=== PATIENT | male | born 1950 | race Caucasian/White ===

== ENCOUNTER 2016-10-21 09:03 | Outpatient (CLI) | payer MEDICARE, BC ==
[~2016-10-21] VITALS: Ht 172.7 cm; Wt 81.8 kg
--- NOTE | ~2016-10-21 | OP ---
PATIENT NAME: BELINDA GERARD MEDICAL RECORD: [id number] :46 LOCATION:D.CAT ADMISSION DATE: SURGEON: MERLY HARRIS MD OPERATION DATE: 10/21/16 PROCEDURES: 1. Percutaneous transluminal coronary angioplasty stent left circumflex. 2. Left heart catheterization. 3. Selective coronary angiography. 4. Left ventriculogram. INDICATION: 1. Angina. 2. Coronary artery disease. PROCEDURE IN DETAIL: After informed consent was obtained and after detailed explanation of risks, benefits, as well as alternative therapies, the patient elected to proceed with angiogram and angioplasty. The right femoral area was prepped and draped in a normal sterile fashion. The right femoral artery was cannulated via modified Seldinger technique with placement of 6-Macedonian sheath. All catheters exchanged through this sheath. FINDINGS: The left ventriculogram was performed in standard 30 degree PURVIS view, reveals preserved cardiac wall motion and ejection fraction of 50%. SELECTIVE CORONARY ANGIOGRAPHY: 1. The left main is with no significant angiographic disease. 2. The left anterior descending has mild irregularities but no flow-limiting stenosis. 3. The left circumflex has 99% stenosis in the mid vessel. 4. The right coronary artery has a chronic 100% stenosis in the mid vessel, however, it fills via left to right collaterals. PTCA STENT OF THE LEFT CIRCUMFLEX: The stent used was a 3.0 X 18 millimeter BioFreedom stent to this 15 millimeter lesion in a 3.0 vessel, PARKER 3 flow before and after the intervention. The result was 0% residual stenosis. OVERALL IMPRESSION: Successful percutaneous transluminal coronary angioplasty stent of the left circumflex going from 99% initial stenosis to 0% residual stenosis. MERLY HARRIS MD CC: [id number] DICTATION DATE: 10/21/16 1500 ASSORTER: DM 10/22/16 0950 DEP CLI 10/21/[address] [facility] [address] [place] [address]
--- NOTE | ~2016-10-21 | HEMODYNAMI ---
PATIENT:BELINDA GERARD MEDICAL RECORD: [id number] : 46 LOCATION:D.CAT ADMISSION DATE: 10/21/16 Generatedon:10/21/201613:42 Patient name: BELINDA GERARD Patient #: [id number] SSN: DO B: 1950 Date of study: 10/21/2016 Page: Of Hemodynamic Procedure Report Patient Data Patient Demographics Procedure consent was obtained First Name: BELINDA Gender: Male Last Name: RAJANI : 1950 Middle Initial: O Age: 66 year(s) Patient #: [id number] Race: Additional ID: [id number] Contact details Address: [address] [place] [address] [address]IVE State: [place] City: [place] Zip code: [address] Past Medical History Allergies: No known allergies Admission Admission Data Admission Date: 10/21/2016 Admission Time: 9:03 Admit Source: Other Height (in.): 68 BSA: 1.96 (m2) Height (cm.): 172.72 BMI: 27.42 (kg/m2) Weight (lbs.): 180.36 Weight (kg.): 81.81 Lab Results Lab Result Date: 10/21/2016 Lab Result Time: 9:20 Biochemistry Name Units Result Min Max BUN mg/dl 17 --(---*)-- 7 18 Creatinine mg/dl 1.1 --(--*-)-- 0.6 1.3 CBC Name Units Result Min Max Hematocrit % 48.8 --(--*-)-- 42 54 Hemoglobin g/dl 16.1 --(--*-)-- 13.5 17.5 Procedure Procedure Types Cath Procedure Diagnostic Procedure C [facility] w/Coronaries Procedure Description Procedure Date Procedure Date: 10/21/2016 Procedure Start Time: 13:08 Procedure Staff Name Function Abdi Solis MD Performing Physician Yandy Denis RT Scrub Juno Valera RN Nurse Stephon Villar RT Monitor Procedure Data Cath Procedure Fluoroscopy Diagnostic fluoroscopy Total fluoroscopy Time: 8.7 time: 8.7 min min Diagnostic fluoroscopy Total fluoroscopy dose: dose: 1266 mGy 1266 mGy Contrast Material Contrast Material Type Amount (ml) Isovue 300 137 Entry Location Entry Primary Successful Side Size Upsize Upsize Entry Closure Parra ccessful Closure Location (Fr) 1 (Fr) 2 (Fr) Remarks Device Remarks Radial Right 6 Fr Mechanical artery Short Compression Femoral Right 6 Fr Exoseal artery Short Estimated blood loss: 10 ml Diagnostic catheters Device Type Used For End Catheter Placement Diagnostic Infinity 5Fr Procedure AR 2 MOD catheter Diagnostic Terumo 5Fr Procedure [place] 110cm catheter Procedure Complications No complications Procedure Medications Medication Administration Route Dosage Oxygen NC 2 l/min Heparin Flush Bag added to field 2 bags (1000units/500ml NS) 0.9% NaCl I.V. 100 ml/hr Radial Cocktail added to field 1 syringe (Verapomil 2mg/Nitro 400mcg/Heparin 1500units) Fentanyl I.V. 50 mcg Versed I.V. 1 mg Radial Cocktail I.A. 1 syringe (Verapomil 2mg/Nitro 400mcg/Heparin 1500units) Fentanyl I.V. 50 mcg Versed I.V. 1 mg Heparin Bolus I.V. 4000 units Integrilin (Bolus I.V. 7.3 ml 2mg/ml) Integrilin (Bolus wasted 2.7 ml 2mg/ml) Plavix P.O. 600 mg Aspirin P.O. 325 mg Hemodynamics Rest BSA: 1.96 (m2) HGB: 16.1 (g/dl) O2 Consumption: Estimated: 223.3 (ml/min) O2 Con sumption indexed: Estimated:113.93 (ml/min/m) Heart Rate: 64 (bpm) Snapshots Pre Cath Intra NCS Post Cath Vital Signs Time Heart Resp SPO2 NIBP (mmHg) Rhythm Pain Sedation Rate (ipm) (%) Status Level (bpm) 12:51:06 61 17 98 144/82(119) NSR 0 (11) 10(A) , No pain 12:55:18 58 19 100 143/80(122) NSR 0 (11) 10(A) , No pain 12:59:30 68 18 94 124/80(100) NSR 0 (11) 10(A) , No pain 13:03:38 67 17 94 120/69(94) NSR 0 (11) 10(A) , No pain 13:07:46 66 17 90 119/69(100) NSR 0 (11) 9(A) , No pain 13:11:54 74 19 91 87/60(73) NSR 0 (11) 9(A) , No pain 13:15:51 72 17 92 108/64(91) NSR 0 (11) 9(A) , No pain 13:19:53 71 17 92 115/70(98) NSR 0 (11) 9(A) , No pain 13:24:01 72 17 94 110/60(89) NSR 0 (11) 9(A) , No pain 13:28:04 78 18 92 116/66(80) NSR 0 (11) 9(A) , No pain 13:32:12 74 18 95 115/66(82) NSR 0 (11) 9(A) , No pain 13:36:18 75 11 93 116/70(86) NSR 0 (11) 9(A) , No pain 13:40:24 69 12 97 117/68(89) NSR 0 (11) 9(A) , No pain Medications Time Medication Route Dose Verified Delivered Reason Note s Effectiveness by by 12:53:09 Oxygen NC 2 l/min Juno Fraire Per physician Soto Valera RN RN 12:53:17 Heparin Flush added 2 bags Juno Fraire used for Bag to Soto Valera junior media buyer (1000units/500ml field RN NS) 12:53:30 0.9% NaCl I.V. 100 Juno Fraire Per physician ml/hr Soto Valera RN RN 12:53:39 Radial Cocktail added 1 Juno Fraire used for (Verapomil to syringe Soto Valera RN procedure 2mg/Nitro field RN 400mcg/Heparin 1500units) 13:06:02 Fentanyl I.V. 50 mcg Juno Fraire for sedation Soto Valera RN RN 13:06:10 Versed I.V. 1 mg Juno Fraire for sedation Soto Valera RN RN 13:08:18 Radial Cocktail I.A. 1 Juno Patton for (Verapomil syringe Soto Solis MD vasodilation 2mg/Nitro RN 400mcg/Heparin 1500units) 13:08:24 Fentanyl I.V. 50 mcg Juno Fraire for sedation Soto Valera RN RN 13:08:30 Versed I.V. 1 mg Juno Fraire for sedation Soto Valera RN RN 13:27:12 Heparin Bolus I.V. 4000 Juno Fraire for units Soto Valera RN anticoagulation RN 13:27:27 Integrilin I.V. 7.3 ml Juno Fraire for (Bolus 2mg/ml) Soto Valera RN antiplatelet RN therapy 13:27:35 Integrilin wasted 2.7 ml Juno Fraire for (Bolus 2mg/ml) Soto Valera RN antiplatelet RN therapy 13:32:32 Plavix P.O. 600 mg Juno Fraire for Soto Valera RN antiplatelet RN therapy 13:39:37 Aspirin P.O. 325 mg Juno Fraire Per physician Soto Valera RN creative writing teacher Log Time Note 12:30:27 Juno Valera RN sent for patient. Start room use. 12:38:28 Time tracking: Regular hours 12:38:32 Plan of Care:Hemodynamics will remain stable., Cardiac rhythm will remain stable., Comfort level will be maintained., Respiratory function will remain adequate., Patient/ family verbilizes understanding of procedure., Procedure tolerated without complication., Recovers from procedure without complications.. 12:42:57 Patient received from Pre/Post Procedure Room to [facility] 2 Alert and oriented. Tansferred to table in Supine position. 12:49:53 Warm blankets applied, and jacqueline hugger turned on for patient comfort. 12:49:54 Correct patient and procedure confirmed by team. 12:49:55 Signed procedure consent form obtained from patient. 12:49:55 ECG and BP/O2 sat monitors applied to patient. 12:49:56 Vital chart was started 12:49:57 Full Disclosure recording started 12:53:09 Oxygen 2 l/min NC was administered by Juno Valera RN; Per physician; 12:53:17 Heparin Flush Bag (1000units/500ml NS) 2 bags added to field was administered by Juno Valera RN; used for procedure; 12:53:30 0.9% NaCl 100 ml/hr I.V. was administered by Juno Valera RN; Per physician; 12:53:39 Radial Cocktail (Verapomil 2mg/Nitro 400mcg/Heparin 1500units) 1 syringe added to field was administered by Juno Valera RN; used for procedure; 12:57:54 Baseline sample Acquired. 12:58:07 Rhythm: sinus rhythm 12:58:28 H&P Date Dictated: 09/29/2016 Within 30 days and on chart., H&P Addendum completed by physician on day of procedure. (MUST COMPLETE FOR ALL OUTPATIENTS). 12:58:30 Pre-procedure instructions explained to patient. 12:58:30 Pre-op teaching completed and patient verbalized understanding. 12:58:32 Family in waiting room. 12:58:33 Patient NPO since Midnight. 12:58:39 Patient allergic to No known allergies 12:58:40 Is the patient allergic to Iodine/contrast media? No. 12:58:42 Is patient on blood thinner?No 12:58:45 Patient diabetic? No. 12:58:49 Previous problem with sedation/anesthesia? No ? 12:58:50 Snore? Yes 12:58:51 Sleep apnea? No 12:58:53 Deviated septum? No 12:58:53 Opens mouth fully? Yes 12:58:54 Sticks out tongue? Yes 12:58:57 Airway obstruction? No ? 12:59:04 Dentures? Yes in tight 12:59:36 Modified Vernon's test Ulnar < 7 seconds 12:59:38 Patient pain scale 0/10 ?. 13:00:00 IV patent on arrival in right wrist with 0.9% NaCl at [facility]. 13:01:48 Lab Result : BUN 17 mg/dl 13:01:48 Lab Result : Hemoglobin 16.1 g/dl 13:01:48 Lab Result : Creatinine 1.1 mg/dl 13:01:48 Lab Result : Hematocrit 48.8 % 13:01:51 Lab results completed and on chart. 13:01:55 Right Radial & Right Groin area was prepped with chlora-prep and draped in sterile fashion 13:01:57 Alarms reviewed by R. N. 13:01:57 Sharps counted by scrub and verified by R.N. 13:02:01 Use device set Radial Dx 13:02:02 MBrace Wrist Support opened to sterile field. 13:02:03 Acist Manifold opened to sterile field. 13:02:04 Acist Hand Control opened to sterile field. 13:02:04 Tegaderm 4 x 4 opened to sterile field. 13:02:05 Acist Syringe opened to sterile field. 13:02:06 Medline Cath Pack opened to sterile field. 13:02:06 Bag Decanter opened to sterile field. 13:02:07 Terumo 6Fr Slender Glidesheath opened to sterile field. 13:02:07 St Matt 260cm J .035 wire opened to sterile field. 13:02:20 Physician paged 13:: Physician arrived :: --------ALL STOP TIME OUT------ 13:: Final Timeout: patient, procedure, and site verified with staff and physician. All members of the team are in agreement. 13:05:24 Right Radial & Right Groin site verified by team. 13::27 Physical assessment completed. ASA score P 2 - A patient with mild systemic disease as per Abdi Solis MD. 13:05:30 Sedation plan: IV Moderate Sedation Versed, Fentanyl 13:06:02 Fentanyl 50 mcg I.V. was administered by Juno Valera RN; for sedation; 13:06:10 Versed 1 mg I.V. was administered by Juno Valera RN; for sedation; 13:07:12 Zero performed for pressure channel P1 13:08:08 Local anesthetic to right radial artery with Lidocaine 2% by Abdi Solis MD.INITIAL ACCESS ONLY 13:08:18 Radial Cocktail (Verapomil 2mg/Nitro 400mcg/Heparin 1500units) 1 syringe I.A. was administered by Abdi Solis MD; for vasodilation; 13:08:19 A 6 Fr Short sheath was inserted into the Right Radial artery 13:08:20 A Diagnostic Terumo 5Fr [place] 110cm catheter was advanced over the wire and used for Procedure. 13:08:24 Fentanyl 50 mcg I.V. was administered by Juno Valera RN; for sedation; 13:08:30 Versed 1 mg I.V. was administered by Juno Valera RN; for sedation; 13:11:49 LV gram done using PURVIS 13:11:52 Injector settings: Ml/sec: 5, Volume: 15, 13:12:12 EF : 55 % 13:13:25 Catheter removed. unable to cannulate vessel. 13:13:41 A Diagnostic Infinity 5Fr AR 2 MOD catheter was advanced over the wire and used for Procedure. 13:14:35 RCA angiography performed. 13:15:37 Catheter exchanged over wire. 13:15:58 Cordis 6FR XBLAD 3.5 guide catheter opened to sterile field. 13:16:10 6 Fr xblad 3.5 guide catheter was inserted over the wire 13:17:20 Guide Catheter removed. unable to cannulate vessel. 13:18:29 unable to cannulate LCA through the radial, moving to femoral approach. 13:18:45 Terumo 6Fr [place] Sheath opened to sterile field. 13:18:54 Use device set Multipack Set 13:19:01 Local anesthetic to right femoral artery with Lidocaine 2% by Abdi Solis MD.ADDITIONAL ACCESS 13:19:37 A 6 Fr Short sheath was inserted into the Right Femoral artery 13:20:21 6 Fr xblad 3.5 guide catheter was inserted over the wire 13:22:13 Guide Catheter removed. unable to cannulate vessel. 13:22:58 Medtronic Launcher 5Fr EBU 3.0 guide catheter opened to sterile field. 13:23:11 6 Fr ebu 3.0 guide catheter was inserted over the wire 13:23:50 LCA angiography performed. 13:26:05 [employer] BasixCompak Inflation Kit opened to sterile field. 13:26:06 Rosales Whisper J 300cm 0.014 guide wire opened to sterile field. 13:26:22 whisper wire advanced. 13:27:12 Heparin Bolus 4000 units I.V. was administered by Juno Valera RN; for anticoagulation; 13:27:27 Integrilin (Bolus 2mg/ml) 7.3 ml I.V. was administered by Juno Valera RN; for antiplatelet therapy; 13:27:29 Wire advanced across lesion. 13:27:35 Integrilin (Bolus 2mg/ml) 2.7 ml wasted was administered by Juno Valera RN; for antiplatelet therapy; 13:28:17 Inflation number: 1 A Mozec Rx 2.5 x 14 balloon was prepped and advanced across the Mid CX, then inflated to 11 CAMILLE for 0:10 (min:sec). 13:28:47 Balloon removed over the wire. 13:30:02 Inflation Number: 2 A Biofreedom 3.0 x 18 stent (No Cost Implant) was prepped and advanced across the Mid CX. The stent was deployed at 11 CAMILLE for 0:10 (min:sec). 13:30:33 Cordis 6Fr Exoseal opened to sterile field. 13:30:40 Sheath removed intact; hemostasis achieved with Exoseal to the Right Femoral artery. 13:30:48 Terumo TR Band Standard opened to sterile field. 13:30:57 Sheath removed intact; hemostasis achieved with Mechanical Compression to the Right Radial artery. 13:30:59 Procedure ended.(Physican Out) 13:32:32 Plavix 600 mg P.O. was administered by Juno Valera RN; for antiplatelet therapy; 13:32:36 Patient Height : 172.72 cm 13:32:44 Patient Weight : 81.81 kg 13:32:58 Fluoroscopy time 08.70 minutes. 13:33:04 Flurop Dose total: 1266 13:33:04 Fluoroscopy dose: 1266 mGy 13:33:15 Contrast amount:Isovue 300 137ml. 13:33:16 Sharps counted by scrub and verified by R.N. 13:33:18 TR band inflated with 12cc of air. 13:33:19 Insertion/operative site no bleeding no hematoma. 13:33:22 Post-op/insertion site Right Femoral artery dressed using a 4 x 4 and Tegaderm. 13:34:54 Post right femoral artery:stable, soft, clean and dry 13:34:56 Post Procedure Pulses reassessed and unchanged 13:38:52 Post-procedure physical assessment completed. ASA score P 2 - A patient with mild systemic disease as per Abdi Slois MD. 13:38:55 Post procedure rhythm: unchanged. 13:38:57 Estimated blood loss: 10 ml 13:39:04 Post procedure instruction explained to patient.Patient verbalizes understanding. 13:39:09 Patient needs reinforcement of post procedure teaching. 13:39:37 Aspirin 325 mg P.O. was administered by Juno Valera RN; Per physician; 13:39:43 Admit Source: Other 13:42:01 Procedure and supply charges have been captured, reviewed, submitted and are correct. 13:42:03 Procedure Complication : No complications 13:42:06 Vital chart was stopped 13:42:06 See physician's report for complete and final results. 13:42:07 Report given to Pre/Post Procedure Room. 13:42:10 Patient transfered to Pre/Post Procedure Room with Stretcher. 13:42:17 ACC-PCI Only Patient was given prescriptions, or instructed by Abdi Solis MD to start/continue the following medications upon discharge: Aspirin, Plavix 13:42:18 End room use (Document Last) Intervention Summary Intervention Notes Time ActionType Lesion and Equipment Action# Pressure Duration Attributes Used 13:28:17 Inflate Mid CX Mozec Rx 1 11 00:10 balloon 2.5 x 14 balloon 13:30:02 Place stent Mid CX Biofreedom 2 11 00:10 3.0 x 18 stent (No Cost Implant) Device Usage Item Name Manufacture Quantity Catalog Hospital Part Current Minimal Lot# / Number Charge Number Stock Stock Serial# Code [facility] 1 140-0250-00 [id number] 30549 193086 5 Wrist Vascular Support Dynamics Acist Acist 1 97877 723648 600562 862552 5 Manifold Medical Systems Inc Acist Hand Acist 1 41850 978955 112585 165524 5 Control Medical Systems Inc Tegaderm 4 3M 1 [id number] 393539 128380 634675 5 x 4 Acist Acist 1 19519 835738 739819 532162 20 Syringe Medical Systems Inc Medline Cardinal 1 [id number] 397096 53280 747599 5 Cath Pack Health Bag Microtek 1 2002S 719261 65758 727342 5 Decanter Medical Inc. Terumo 6Fr Terumo 1 [id number] 528588 372199 481498 [address] Matt 1 182472 764876 420444 075855 30 260cm J .035 wire Diagnostic Cardinal 1 [id number] 386291 912270 109618 20 FanMob Health 5Fr AR 2 MOD catheter Cordis 6FR Cardinal 1 [id number] 507213 125154 009409 10 XBLAD 3.5 Health guide catheter Terumo 6Fr Terumo 1 [id number] 913742 257637 252345 40 [place] Sheath Medtronic Medtronic 1 [id number] 544249 561084 508500 1 Launcher 5Fr EBU 3.0 guide catheter Merit Merit 1 [id number] 816287 276651 594821 15 BasixCompak Medical Inflation Kit Rosales Rosales 1 [id number] 141187 186806 286152 5 Whisper J Vascular 300cm 0.014 guide wire Mozec Rx Cardinal 1 [id number] 344521 01089 319205 5 UMOA84 2.5 x 14 Health balloon Biofreedom Biosensors 1 [id number] 481156 230008 5 [id number] 3.0 x 18 [place] SA stent (No Cost Implant) Cordis 6Fr Cardinal 1 [id number] 452552 047563 942055 10 OnAir [facility] Terumo TR Terumo 1 [id number] 460589 458551 983907 40 Band Standard Diagnostic Terumo 1 21-1997 414619 466771 148264 5 Terumo 5Fr [place] 110cm catheter Signature Audit [place] Stage Time Signature Unsigned Intra-Procedure 10/21/2016 Stephon Villar 1:42:45 PM RT(R) Signatures Monitor : Stephon Villar RT Signature : Date : Time : [facility] [address] [address]
[2016-10-21] MEDS ORDERED: CELEXA20 MG PO (09:16)
[2016-10-21] MEDS ORDERED: OMEPRAZOLE40 MG PO (09:17)
[2016-10-21] MEDS ORDERED: MOBIC7.5 MG PO (09:17)
[2016-10-21] MEDS ORDERED: PRAVASTATIN SOD10 MG PO (09:17)
[2016-10-21 09:32] VITALS: BP 139/75; Ht 172.7 cm; Wt 81.8 kg
[2016-10-21 09:38] LABS: BASOPHILS 0.1 % (0-2); EOSINOPHILS 1.7 % (0-7); HEMATOCRIT 48.8 % (42.0-54.0); HEMOGLOBIN 16.1 g/dL (13.5-17.5); IMMATURE GRANULOCYTES 1.2 % (0-5); LYMPHOCYTES 26.9 % (15-50); MCH 29.4 pg (26.0-34.0); MCV 89.1 fL (80.0-100.0); MEAN PLATELET VOLUME 10.8 fL (7.4-10.4); MONOCYTES 10.8 % (2-11); NEUTROPHILS 59.3 % (40-80); PLATELET COUNT 186 10x3/uL (130-400); RBC 5.48 10x6/uL (4.20-6.10); RDW 14.6 % (11.5-14.5); WBC 9.7 10x3/uL (4.8-10.8)
[2016-10-21 10:02] LABS: CALC OSMOLALITY 277 mosm/kg (275-300); CALCIUM 8.7 mg/dL (8.5-10.1); CARBON DIOXIDE 23.7 mmol/L (21.0-32.0); CHLORIDE - SERUM 104 mmol/L (98-107); CREATININE - SERUM 1.1 mg/dL (0.6-1.3); GLUCOSE 93 mg/dL (74-106); POTASSIUM - SERUM 4.6 mmol/L (3.5-5.1); SODIUM 138 mmol/L (136-145); UREA NITROGEN 17 mg/dL (7-18); eGFR NON AFRICAN AMERICAN 71 mL/min (90-120)
[2016-10-21 10:15] LABS: CKMB 0.2 U/L (0.0-3.6); CREATINE KINASE 46 UL (21-232); TROPONIN-I < 0.017 ng/mL (0.000-0.060)
--- NOTE | 2016-10-21 13:45 | NUR ---
8110 RECIEVED TO ROOM VIA STRETCHER FROM GENERAL CLAIMS AGENT WITH TR BAND TO R/WRIST CDI NO BLEEDING NO HEMATOMA NOTED. 6 FR EXOSEAL R/GROIN CDI NO BLEEDING NO HEMATOMA NOTED. CHEST PAIN IS DENIED
[2016-10-21] MEDS ORDERED: PLAVIX75 MG PO (13:54)
[2016-10-21] MEDS ORDERED: BAYER CHEWABLE81 MG PO (13:54)
--- NOTE | 2016-10-21 14:15 | NUR ---
TR BAND R/WRIST CDI NO BLEEDING NOTED. 6 FR EXOSEAL R/GROIN CDI NO BLEEDING NO HEMATOMA NOTED. INSTRUCTED PATIENT TO KEEP HEAD FLAT ON PILLOW WITH RLE STRAIGHT.
--- NOTE | 2016-10-21 14:40 | NUR ---
SMALL AMOUNT OF BLOOD NOTED TO R/GROIN SOFT TO TOUCH MARKED DRESSING WILL MONITOR CHEST PAIN IS DENIED VSS
--- NOTE | 2016-10-21 14:56 | NUR ---
DRESSING REMAINS STABLE WITH SMALL AMOUNT OF BLOOD NOTED NO CHANGE IN PREVIOUS ASSESSMENT. BP 122/70 HR 57 CHEST PAIN DENIED
--- NOTE | 2016-10-21 16:00 | NUR ---
EKG COMPLETE AND TO CHART. VSS WITH CHEST PAIN DENIED 6 FR EXOSEAL R/GROIN REMAINS STABLE.
--- NOTE | 2016-10-21 16:30 | NUR ---
1630 REPOSITIONED TO SITTING WITH HOB UP 45 DEGREES. CHEST PAIN IS DENIED. 6 FR EXOSEAL CHANGED WITH CLEAN DRESSING APPLIED 4 CC AIR REMOVED FROM TR BAND NO BLEEDING NOTED PATIENT UP TO GET DRESSED FOR DISCHARGE HOME
--- NOTE | 2016-10-21 16:58 | NUR ---
VERBAL AND WRITTEN DISCHARGE GONE OVER WITH PATIENT AND BOTH VERBALIZED UNDERSTANDING. TR BAND REMOVED WITH DRESSING APPLIED. 6 FR EXOSEAL R/GROIN CDI NO BLEEDING NOTED. CHEST PAIN IS DENIED LEFT VIA WC TO PARKING FOR TO DRIVE HOME
== END 2016-10-21 17:20 | disposition home or self-care (01) ==
LOC: D.CATH 09:03
PROVIDERS: Internal Medicine Interventional Cardiology
DX: I25.119 Atherosclerotic heart disease of native coronary artery with unspecified angina pectoris (principal); Z00.6 Encounter for examination for normal comparison and control in clinical research program; Z01.812 Encounter for preprocedural laboratory examination
CPT/HCPCS: 93458; C9600